=== PATIENT | female | born 1985 | race Caucasian/White ===

== ENCOUNTER 2018-09-01 14:12 | Emergency (ER) | payer OTHER ==
[~2018-09-01] VITALS: Ht 157.5 cm; Wt 76.5 kg
[~2018-09-01 14:12] MED LIST: FERR325T63 PO; IBUP-1223 PO; PREN1TAB60 PO
[2018-09-01 14:49] LABS: BASOPHILS # (AUTO) 0.04 x10^3/uL (0-0.1); BASOPHILS % (AUTO) 0 % (0-1); EOSINOPHILS # (AUTO) 0.16 x10^3/uL (0-0.4); EOSINOPHILS % (AUTO) 2 % (1-7); LYMPHOCYTES # (AUTO) 2.42 x10^3/uL (1-3.4); LYMPHOCYTES % (AUTO) 29 % (22-44); MD NO; MEAN CORPUSCULAR HEMOGLOBIN 28.6 pg (27.0-34.8); MEAN CORPUSCULAR HGB CONC 33.4 g/dL (32.4-35.8); MEAN CORPUSCULAR VOLUME 85.4 fL (80-100); MEAN PLATELET VOLUME 7.4 fL (7.4-10.4); MONOCYTES # (AUTO) 0.44 x10^3/uL (0.2-0.8); MONOCYTES % (AUTO) 5 % (2-9); NEUTROPHILS # (AUTO) 5.21 x10^3/uL (1.8-6.8); NEUTROPHILS % (AUTO) 63 % (42-75); PLATELET COUNT 319 x10^3/uL (130-400); RED BLOOD COUNT 4.09 x10^6/uL (3.82-5.3); RED CELL DISTRIBUTION WIDTH 14.3 % (9.6-15.2)
[2018-09-01 14:57] LABS: ALBUMIN 3.8 g/dL (3.4-5.0); ANION GAP 9 mmol/L (5-15); CALCIUM 9.2 mg/dL (8.5-10.1); CHLORIDE 106 mmol/L (98-107); CREATININE 0.79 mg/dL (0.55-1.02)
[2018-09-01 16:19] LABS: MICROSCOPIC NOT IND
[2018-09-01 16:30] LABS: CULTURE INDICATED? NO
[2018-09-01 16:33] LABS: CLUE CELLS NONE SEEN (NONE SEEN); WET PREP WBCS NONE SEEN (FEW)
[2018-09-01] MEDS ORDERED: FLUCONAZOLE 100 MG TABLET PO ONE (17:00)
[2018-09-01 17:58] VITALS: BP 114/77
== END 2018-09-01 18:00 | disposition home or self-care (01) ==
LOC: ED 17:36
DX: N83.291 Other ovarian cyst, right side (principal); B37.3 Candidiasis of vulva and vagina
CPT/HCPCS: 36415; 76830; 80048; 81003; 82040; 84703; 85025; 87210; 87491; 87591; 87808; 99284

== ENCOUNTER 2021-06-10 13:59 | Emergency (ER) | payer OTHER ==
[~2021-06-10] VITALS: Ht 162.6 cm; Wt 79.5 kg
[2021-06-10 14:04] VITALS: BP 93/56
[2021-06-10 15:11] LABS: BASOPHILS % (AUTO) 0 % (0-1); EOSINOPHILS % (AUTO) 0 % (1-7); LYMPHOCYTES % (AUTO) 12 % (22-44); MEAN CORPUSCULAR HEMOGLOBIN 26.5 pg (27.0-34.8); MEAN CORPUSCULAR HGB CONC 33.8 g/dL (32.4-35.8); MONOCYTES % (AUTO) 2 % (2-9); NEUTROPHILS % (AUTO) 86 % (42-75); PLATELET COUNT 166 x10^3/uL (130-400); RED BLOOD COUNT 4.69 x10^6/uL (3.82-5.3); RED CELL DISTRIBUTION WIDTH 17.8 % (9.6-15.2)
[2021-06-10 15:19] LABS: ALBUMIN 3.4 g/dL (3.4-5.0); ANION GAP 9 mmol/L (5-15); CALCIUM 8.3 mg/dL (8.5-10.1); CHLORIDE 107 mmol/L (98-107)
[2021-06-10 15:24] LABS: CREATININE 0.98 mg/dL (0.55-1.02)
--- NOTE | 2021-06-10 17:09 | NUR ---
NIL X1
--- NOTE | 2021-06-10 17:41 | NUR ---
CALLED FOR ROOM, NO ANSWER.
--- NOTE | 2021-06-10 17:55 | NUR ---
3RD CALL FOR ROOM, NO ANSWER.
== END 2021-06-10 17:56 | disposition left against medical advice (07) ==
LOC: ED 14:04
DX: R05 Cough (principal); R94.31 Abnormal electrocardiogram [ECG] [EKG]
CPT/HCPCS: 36415; 71045; 80048; 82040; 84703; 85025; 93005; 99285